=== PATIENT | female | born 1955 | race Caucasian/White ===

== ENCOUNTER → 2016-09-26 | Outpatient (CLI) | payer OTHER | LOC: FIMAGING 15:59 | DX: Z12.31 Encounter for screening mammogram for malignant neoplasm of breast (principal); Z80.3 Family history of malignant neoplasm of breast | CPT/HCPCS: G0202 ==

== ENCOUNTER 2017-09-18 15:03 | Emergency (ER) | payer OTHER ==
--- NOTE | 2017-09-18 15:15 | CPEKG ---
Heart Rate: 117 RR Interval: 513 P-R Interval: 168 QRSD Interval: 78 QT Interval: 320 QTC Interval: 447 P [place]: 85 QRS [place]: 75 T Wave [place]: 36 EKG Severity - ABNORMAL ECG - EKG Impression: SINUS TACHYCARDIA EKG Impression: BIATRIAL ABNORMALITIES EKG Impression: CONSIDER RIGHT VENTRICULAR HYPERTROPHY EKG Impression: NONSPECIFIC T ABNORMALITIES, LATERAL LEADS Electronically Signed By: Kaya Rogers 18-Sep-2017 21:21:20
--- NOTE | 2017-09-18 15:21 | EDPHY ---
HPI/HX/ROS/PE/MDM Narrative: CHIEF COMPLAINT: Chest pain HISTORY OF PRESENT ILLNESS: The patient is a 62 y/o female with a history of rheumatoid arthritis and asthma complaining of chest and back pain. At 14:20, 1 hour ago, she developed back pain that radiated around to her armpits and into her chest. This episodes lasted around 3 minutes. She took several TUMS as she thought this was reflux. However, after presenting to the ED she developed a burning pain under her left breast, onset 20 minutes ago. This pain is mildly exacerbated when taking a deep breath. However, this pain is mildly improving. No history of cholecystitis, DVT, PE, recent travel. Her father had stents placed in his heart , he was older than 50 when this occurred. Last Friday she stopped taking Tramadol and Prednisone for her RA as she started taking Simponi. No fever, chills, shortness of breath, palpitations, vomiting, diarrhea, urinary complaints, headache, lightheadedness. REVIEW OF SYSTEMS: Aside from elements discussed in the HPI, a comprehensive 10-point review of systems was reviewed and is negative. PAST MEDICAL HISTORY: Rheumatoid arthritis, asthma, GERD SOCIAL HISTORY: , lives in [place], [facility] VITAL SIGNS: Reviewed by me GENERAL: Well-developed, well-nourished, resting comfortably in no respiratory distress. HEENT: Atraumatic. Eyes: No icterus, no injection. Mouth: moist mucous membranes. No erythema or lesions. Neck: supple with no adenopathy. LUNGS: Clear to auscultation bilaterally, no wheezes, rhonchi or rales. CARDIAC: Regular tachycardia, mild discomfort under left breast, no rubs, murmurs or gallops. ABDOMEN: Soft, nontender, nondistended, bowel sounds normal. BACK: Mild discomfort around T8-9. No CVA tenderness. EXTREMITIES: No trauma. No edema. Range of motion is normal throughout. NEURO: Alert and oriented, grossly nonfocal. SKIN: Warm and dry, no rash. PSYCHIATRIC: Normal mentation, no agitation. Portions of this note were transcribed by a biomedical engineering professor. I personally performed a history, physical exam, medical decision making, and confirmed accuracy of information the transcribed note. ED Course: The patient is a 62 y/o female with a history of rheumatoid arthritis and asthma presenting with two episodes of chest pain, initial onset 1 hour ago. On exam she is regularly tachycardic. She also has mild discomfort under her left breast and around T8-9. Labs, chest x-ray, and EKG ordered. 324 mg PO Aspirin and GI Cocktail administered. 1513: 12-LEAD EKG: Please see the full report in [facility]. My interpretation: Sinus tachycardia with a rate of 117 and non-specific T-wave abnormalities. 1603: Patient has an elevated d-dimer of 3.6. Angio chest CT ordered. 1646: Spoke with radiologist, patient's angio chest CT is negative for a PE. Her troponin is also normal. 1700: Reassessed patient, her chest burning and discomfort have gone away after the GI Cocktail. I held a long discussion with the patient regarding her heart score. HEART SCORE: History: 0 for slightly suspicious EK for nonspecific T-wave changes laterally Age: 1 for age Risk Factors: 1 for family history Troponin: 0 I discussed with the patient the fact that her heart score is 3. We discussed that a heart score of 0-3 would give her a risk of major adverse cardiac event in the next 30 days of 1-2%. I offered the patient admission to the hospital for urgent risk stratification. She would prefer to have a 2nd troponin and 2nd EKG performed in the emergency department in 4 hr and follow up with Cardiology on an urgent basis. Repeat troponin is negative. EKG after 4 hr demonstrates sinus rhythm, with no ischemic changes. Patient has had no recurrence of her discomfort. 1940: Reassessed patient and discussed repeat lab results. She was discharged with instructions to take Prilosec and to follow up with her primary care physician to arrange stress testing. MDM: After history and physical examination, the differential for chest pain was considered, including but not limited to, myocardial ischemia, acute coronary syndrome, pulmonary embolus, chest wall pain, pleural inflammation and pulmonary infectious causes. - Data Points Imaging Results: Imaging Impressions Chest X-Ray 09/18/17 15:21 Impression: Clear lungs. No acute process. Chest/Thorax CTA 09/18/17 15:59 Impression: 1. No evidence of thrombopulmonary embolic disease. 2. Clear lungs. No acute pulmonary process. Findings discussed with Emergency Department physician, Kaya Rogers MD on 09/18/2017, 16:47. Imaging: Discussed imaging studies w/ square dance caller Radiologist, I viewed and interpreted images myself Laboratory Results: Laboratory Results 09/18/17 15:20 09/18/17 15:20 09/18/17 09/18/17 09/18/17 18:45 15:20 15:20 WBC RBC Hgb Hct MCV MCH MCHC RDW Plt Count MPV Neut % (Auto) Lymph % (Auto) [place] % (Auto) Eos % (Auto) Baso % (Auto) Nucleat RBC Rel Count Absolute Neuts (auto) Absolute Lymphs (auto) Absolute Monos (auto) Absolute Eos (auto) Absolute Basos (auto) Absolute Nucleated RBC Immature Gran % Immature Gran # D-Dimer 3.66 ug/mLFEU H ug/mLFEU (0.00-0.50) Sodium 134 mEq/L L mEq/L (135-145) Potassium 3.7 mEq/L mEq/L (3.5-5.2) Chloride 100 mEq/L mEq/L (97-110) Carbon Dioxide 22 mEq/l mEq/l (22-31) Anion Gap 12 mEq/L mEq/L (8-16) BUN 17 mg/dL mg/dL (7-23) Creatinine 0.8 mg/dL mg/dL (0.6-1.0) Estimated GFR > 60 Glucose 100 mg/dL mg/dL (70-100) Calcium 9.4 mg/dL mg/dL (8.5-10.4) Total Bilirubin 0.8 mg/dL mg/dL (0.1-1.4) Conjugated Bilirubin 0.2 mg/dL mg/dL (0.0-0.5) Unconjugated Bilirubin 0.6 mg/dL mg/dL (0.0-1.1) AST 19 IU/L IU/L (14-46) ALT 28 IU/L IU/L (9-52) Alkaline Phosphatase 92 IU/L IU/L (38-126) Troponin I < 0.012 ng/mL ng/mL < 0.012 ng/mL ng/mL (0.000-0.034) (0.000-0.034) Total Protein 7.4 g/dL g/dL (6.3-8.2) Albumin 4.0 g/dL g/dL (3.5-5.0) Lipase 243 IU/L IU/L (23-300) 09/18/17 15:20 WBC 10.23 10^3/uL H 10^3/uL (3.80-9.50) RBC 4.51 10^6/uL 10^6/uL (4.18-5.33) Hgb 13.5 g/dL g/dL (12.6-16.3) Hct 38.9 % % (38.0-47.0) MCV 86.3 fL fL (81.5-99.8) MCH 29.9 pg pg (27.9-34.1) MCHC 34.7 g/dL g/dL (32.4-36.7) RDW 13.4 % % (11.5-15.2) Plt Count 265 10^3/uL 10^3/uL (150-400) MPV 8.8 fL fL (8.7-11.7) Neut % (Auto) 69.5 % % (39.3-74.2) Lymph % (Auto) 19.1 % % (15.0-45.0) [place] % (Auto) 10.0 % % (4.5-13.0) Eos % (Auto) 0.5 % L % (0.6-7.6) Baso % (Auto) 0.6 % % (0.3-1.7) Nucleat RBC Rel Count 0.0 % % (0.0-0.2) Absolute Neuts (auto) 7.12 10^3/uL H 10^3/uL (1.70-6.50) Absolute Lymphs (auto) 1.95 10^3/uL 10^3/uL (1.00-3.00) Absolute Monos (auto) 1.02 10^3/uL H 10^3/uL (0.30-0.80) Absolute Eos (auto) 0.05 10^3/uL 10^3/uL (0.03-0.40) Absolute Basos (auto) 0.06 10^3/uL 10^3/uL (0.02-0.10) Absolute Nucleated RBC 0.00 10^3/uL 10^3/uL (0-0.01) Immature Gran % 0.3 % % (0.0-1.1) Immature Gran # 0.03 10^3/uL 10^3/uL (0.00-0.10) D-Dimer Sodium Potassium Chloride Carbon Dioxide Anion Gap BUN Creatinine Estimated GFR Glucose Calcium Total Bilirubin Conjugated Bilirubin Unconjugated Bilirubin AST ALT Alkaline Phosphatase Troponin I Total Protein Albumin Lipase Medications Given: Discontinued Medications Al Hydroxide/Mg Hydroxide (Maalox Susp) 30 ml PO ONCE ONE Stop: 09/18/17 15:36 Last Admin: 09/18/17 15:52 Dose: 30 ml Aspirin (Aspirin) 324 mg PO EDNOW ONE Stop: 09/18/17 15:36 Last Admin: 09/18/17 15:51 Dose: 324 mg Hyoscyamine Sulfate (Levsin, Hyomax-Sl) 0.25 mg PO ONCE ONE Stop: 09/18/17 15:36 Last Admin: 09/18/17 15:51 Dose: 0.25 mg Lidocaine (Lidocaine 2% Viscous) 15 ml PO ONCE ONE Stop: 09/18/17 15:36 Last Admin: 09/18/17 15:52 Dose: 15 ml General Time Seen by Provider: 09/18/17 15:19 Initial Vital Signs: Initial Vital Signs Temperature (C) 37.3 C 09/18/17 15:06 Heart Rate 118 H 09/18/17 15:06 Respiratory Rate 20 09/18/17 15:06 Blood Pressure 132/108 H 09/18/17 15:06 O2 Sat (%) 100 09/18/17 15:06 O2 Delivery Mode Room Air Allergies/Adverse Reactions: adhesive Allergy (Verified 09/18/17 15:04) danazol Allergy (Verified 09/18/17 15:04) guaifenesin [From Mucinex] Allergy (Verified 09/18/17 15:04) latex Allergy (Verified 09/18/17 15:04) naproxen [From Naprosyn] Allergy (Verified 09/18/17 15:04) Quinolones Allergy (Verified 09/18/17 15:04) Home Medications: Medication Instructions Recorded Advair 100/50 (RX) 11/08/14 Vaginal Estrogen Ring 11/08/14 SIMPONI 09/18/17 Departure - Departure Clinical Impression: possible GERD Chest pain Qualifiers: Chest pain type: unspecified Qualified Code(s): R07.9 - Chest pain, unspecified Condition: Good Instructions: Diet for Stomach Ulcers and Gastritis (ED), Gastroesophageal Reflux Disease (ED) Additional Instructions: Please begin taking Prilosec on a regular basis. This is available over-the- counter. Please take for the next 2 weeks, and discussed this with her primary care physician. Follow up with a apple peeler operator for further testing, as soon as possible. Please call [facility] and make arrangements for re-evaluation. Please advise them that you were seen in the emergency department and we recommended that you have a stress test on a urgent basis. Return to the Emergency Department for fever, chest pain, shortness of breath, increasing pain or other worsening of condition. As we discussed, it is impossible to fully rule out heart disease as the cause of your chest pain in the emergency department. We would be happy to reevaluate you and observe you in the hospital at any time. Referrals: Charbel Rodriguez MD [Medical Doctor] - As per Instructions Galina Antoine MD [Medical Doctor] - As per Instructions Report Scribed for: Kaya Rogers Report Scribed by: Harriet Carlson Date of Report: 09/18/17 Time of Report: 15:20
[2017-09-18 15:27] LABS: PLATELET COUNT 265 10^3/uL (150-400)
[2017-09-18] MEDS ORDERED: HYOSCYAMINE SULFATE 0.125 MG TAB PO ONE (15:35)
[2017-09-18] MEDS ORDERED: ASPIRIN 81 MG CHEWABLE TAB PO ONE (15:35)
[2017-09-18] MEDS ORDERED: MAG HYDROX/AL HYDROX/SIMETH 30 ML UDCUP PO ONE (15:35)
[2017-09-18] MEDS ORDERED: LIDOCAINE 2% VISCOUS 15 ML UDCUP PO ONE (15:35)
[2017-09-18] MEDS ORDERED: IOPAMIDOL (ISOVUE 370) 100 ML BTL IV ONE (16:18)
[2017-09-18 18:57] VITALS: PULSE 83; RESP 18
[2017-09-18 19:53] VITALS: BP 129/91; TEMP 99; O2SAT 98
--- NOTE | 2017-09-19 08:18 | CPEKG ---
Heart Rate: 85 RR Interval: 706 P-R Interval: 152 QRSD Interval: 64 QT Interval: 396 QTC Interval: 471 P [place]: 75 QRS [place]: 65 T Wave [place]: 72 EKG Severity - NORMAL ECG - EKG Impression: SINUS RHYTHM Electronically Signed By: Altaf Bonds 19-Sep-2017 20:38:01
== END 2017-09-18 19:50 | disposition home or self-care (01) ==
DX: R07.9 Chest pain, unspecified (principal); J45.909 Unspecified asthma, uncomplicated
CPT/HCPCS: Q9967

== ENCOUNTER → 2017-11-05 | Outpatient (CLI) | payer OTHER | LOC: FIMAGING 14:51 | PROVIDERS: ATTEND Family Medicine | DX: Z03.89 Encounter for observation for other suspected diseases and conditions ruled out (principal) ==

== ENCOUNTER → 2018-12-22 | Outpatient (CLI) | payer OTHER | LOC: FIMAGING 10:37 ==